=== PATIENT | female | born 1955 | race Caucasian/White ===

== ENCOUNTER 2018-03-16 14:09 | Emergency (ER) | payer MEDICARE ==
[2018-03-16 14:17] VITALS: BP 135/73
[2018-03-16] MEDS ORDERED: MORPHINE SULFATE IR 15 MG TABLET PO ONE (14:55)
--- NOTE | 2018-03-16 14:59 | ER Document Report ---
ED General - General Chief Complaint: Medication Refill Stated Complaint: MEDICATION WITHDRAWL Time Seen by Provider: 03/16/18 14:55 Mode of Arrival: Ambulatory Information source: Patient Notes: Chief complaint: Requesting refill of morphine History of complain:( obtained from----patient) 63 years old female claims that she has been taking 15 mg of morphine 3 times a day has moved from [place] in February, was seeing a pain clinic there are,'s claims that she ran out of the prescription asking me to refill the prescription for a month. History of chronic lower back pain She has oxycodone she says. Onset: As above Duration: Long-standing Severity: Unknown Quality: As above Context: As above Exacerbating factor and relieving factors: As above REVIEW OF SYSTEMS: CONSTITUTIONAL : Denies fever, chills, or sweats. Denies recent illness. EENT: Denies eye, ear, throat, or mouth pain or symptoms. Denies nasal or sinus congestion or discharge. Denies throat, tongue, or mouth swelling or difficulty swallowing. CARDIOVASCULAR: Denies chest pain. Denies palpitations or racing or irregular heart beat. Denies ankle edema. RESPIRATORY: Denies cough, cold, or chest congestion. Denies shortness of breath, difficulty breathing, or wheezing. GASTROINTESTINAL: Denies distention. Denies nausea, vomiting, or diarrhea. Denies blood in vomitus, stools, or per rectum. Denies black, tarry stools. Denies constipation. GENITOURINARY: Denies difficulty urinating, painful urination, burning, frequency, blood in urine, or discharge. FEMALE GENITOURINARY: Denies vaginal bleeding, heavy or abnormal periods, irregular periods. Denies vaginal discharge or odor. MUSCULOSKELETAL: Denies back or neck pain or stiffness. Denies joint pain or swelling. SKIN: Denies rash, lesions or sores. HEMATOLOGIC : Denies easy bruising or bleeding. LYMPHATIC: Denies swollen, enlarged glands. NEUROLOGICAL: Denies confusion or altered mental status. Denies passing out or loss of consciousness. Denies dizziness or lightheadedness. Denies headache. Denies weakness or paralysis or loss of use of either side. Denies problems with gait or speech. Denies sensory loss, numbness, or tingling. Denies seizures. PSYCHIATRIC: Denies anxiety or stress. Denies depression, suicidal ideation, or homicidal ideation. ALL OTHER SYSTEMS REVIEWED AND NEGATIVE. PHYSICAL EXAMINATION: GENERAL: Well-appearing, well-nourished and in no acute distress. Morbid obesity HEAD: Atraumatic, normocephalic. EYES: Pupils equal round and reactive to light, extraocular movements intact, conjunctiva are normal. ENT: Nares patent, oropharynx clear without exudates. Moist mucous membranes. NECK: Normal range of motion, supple without lymphadenopathy LUNGS: Breath sounds clear to auscultation bilaterally and equal. No wheezes rales or rhonchi. HEART: Regular rate and rhythm without murmurs ABDOMEN: Soft, nontender, nondistended abdomen. No guarding, no rebound. No masses appreciated. Examination of genitals-deferred Musculoskeletal: Normal range of motion, no pitting or edema. No cyanosis. NEUROLOGICAL: Cranial nerves grossly intact. Normal speech, normal gait. Normal sensory, motor exams PSYCH: Normal mood, normal affect. SKIN: Warm, Dry, normal turgor, no rashes or lesions noted. Dictation was performed using [employer] voice recognition software TRAVEL OUTSIDE OF THE [place] IN LAST 30 DAYS: No - HPI Notes: Dictated - Related Data Allergies/Adverse Reactions: No Known Allergies Allergy (Unverified 03/16/18 14:15) Past Medical History - Social History Smoking Status: Never Smoker Cigarette use (# per day): No Chew tobacco use (# tins/day): No Lives with: Family Family History: Reviewed & Not Pertinent Review of Systems - Review of Systems Notes: Dictated Physical Exam - Vital signs Vitals: Temp Pulse Resp BP Pulse Ox 99.5 F 99 17 135/73 H 95 03/16/18 14:16 03/16/18 14:16 03/16/18 14:16 03/16/18 14:16 03/16/18 14:16 - Notes Notes: Dictated Course - Vital Signs Vital signs: Temp Pulse Resp BP Pulse Ox 99.5 F 99 17 135/73 H 95 03/16/18 14:16 03/16/18 14:16 03/16/18 14:16 03/16/18 14:16 03/16/18 14:16 Discharge - Discharge Clinical Impression: Chronic pain syndrome Condition: Fair Instructions: Chronic Pain Control ([facility]) Prescriptions: Diphenoxylate HCl/Atropine [Lomotil Tablet] 1 each PO TID #20 tablet Prochlorperazine Maleate [Compazine 10 mg Tablet] 10 mg PO ASDIR PRN #30 tablet PRN Reason:
== END 2018-03-16 15:31 | disposition home or self-care (01) ==
LOC: ER 14:09
DX: G89.4 Chronic pain syndrome (principal); Z79.891 Long term (current) use of opiate analgesic; E66.01 Morbid (severe) obesity due to excess calories; Z68.38 Body mass index [BMI] 38.0-38.9, adult
CPT/HCPCS: 99281; A9270

== ENCOUNTER 2018-07-16 00:15 | Emergency (ER) | payer MEDICARE, MEDICAID | END 2018-07-16 00:37 | disposition left against medical advice (07) | LOC: ER 00:15 | DX: Z53.21 Procedure and treatment not carried out due to patient leaving prior to being seen by health care provider (principal) ==